=== PATIENT | male | born 1985 | race African-American/Black ===

== ENCOUNTER 2016-06-04 21:24 | Emergency (ER) | payer SELFPAY ==
[~2016-06-04] VITALS: Ht 177.8 cm; Wt 109.0 kg
[2016-06-05 02:30] VITALS: BP 150/87
== END 2016-06-05 02:52 | disposition home or self-care (01) ==
LOC: ER 21:24
DX: S62.524A Nondisplaced fracture of distal phalanx of right thumb, initial encounter for closed fracture (principal); F12.10 Cannabis abuse, uncomplicated; W22.8XXA Striking against or struck by other objects, initial encounter; Y93.89 Activity, other specified; Y92.810 Car as the place of occurrence of the external cause
CPT/HCPCS: 29125; 73140; 99284